=== PATIENT | male | born 1935 | race Asian ===

== ENCOUNTER 2018-08-31 15:46 | Emergency (ER) | payer OTHER, BC ==
--- NOTE | 2018-08-31 16:46 | EDPHY ---
H & P Stated Complaint: fall Time Seen by Provider: 08/31/18 16:26 HPI/ROS: Chief Complaint: Mechanical fall, facial injury, headache HPI: The patient presents to the ED after mechanical fall with complaints of headache and facial pain the patient was walking and slipped on the ice. He fell forward. He landed primarily on his left cheek. He has fairly extensive soft tissue swelling and ecchymosis. The patient denies any visual complaints. He denies significant headache. He denies any acute numbness or weakness. Patient denies any associated neck pain, difficulty breathing or other acute complaints. REVIEW OF SYSTEMS: Comprehensive 10 point review systems otherwise negative aside from elements mentioned in the HPI Source: Patient Exam Limitations: No limitations - Personal History Current Tetanus/Diphtheria Vaccine: Yes Current Tetanus Diphtheria and Acellular Pertussis (TDAP): Yes - Medical/Surgical History Hx Asthma: No Hx Chronic Respiratory Disease: No Hx Diabetes: No Hx Cardiac Disease: No Hx Renal Disease: No Hx Cirrhosis: No Hx Alcoholism: No Hx HIV/AIDS: No Hx Splenectomy or Spleen Trauma: No Other PMH: gout, HTN, glaucoma, - Social History Smoking Status: Former smoker - Physical Exam Exam: General Appearance: Alert, no distress Head: Tenderness, swelling and ecchymosis noted over the left zygomatic arch Eyes: Pupils equal, round, reactive ENT, Mouth: No hemotympanum, no oral trauma Neck: Nontender, trachea midline Respiratory: No chest wall tender, no subcutaneous air, lungs clear bilaterally Cardiovascular: Regular rate and rhythm Abdomen: Abdomen is soft and nontender, pelvis stable Skin: No lacerations, No abrasion Back: No midline T/L/S pain Extremities: Nontender, full range of motion Neurological: A&Ox3, normal motor function, normal sensory exam Constitutional: Initial Vital Signs Temperature (C) 36.4 C 08/31/18 15:55 Heart Rate 101 H 08/31/18 15:55 Respiratory Rate 16 08/31/18 15:55 Blood Pressure 127/92 H 08/31/18 15:55 O2 Sat (%) 90 L 08/31/18 15:55 O2 Delivery Mode Room Air Allergies/Adverse Reactions: No Known Allergies Allergy (Unverified 08/31/18 15:53) Home Medications: Medication Instructions Recorded Allopurinol 08/31/18 Aspirin 12/27/18 Colcrys 08/31/18 Gemfibrozil 08/31/18 Lisinopril 08/31/18 Restasis Multidose 08/31/18 Medical Decision Making - Diagnostics Imaging Results: CT head without contrast: No evidence of intracranial hemorrhage. Nondisplaced sinus fracture noted. Images reviewed by myself and discussed with radiologist Dr. Mack. ED Course/Re-evaluation: Given the patient's age, mechanism of injury and complaints of headache a CT scan of the brain was ordered for [place] head CT rules. CT scan demonstrates no evidence of intracranial hemorrhage or cervical spine fracture. He does have a nondisplaced facial bone fracture which is nonsurgical. Patient will be instructed to take ibuprofen and Tylenol as needed for pain. He should return to the ED for severe headache, blurry vision, the development of new pain or other concerns. Differential Diagnosis: Differential diagnosis considered includes intracranial hemorrhage, facial fracture, ocular entrapment, globe injury Departure - Departure Disposition: Home, Routine, Self-Care Clinical Impression: Facial contusion Condition: Good Instructions: Facial Contusion (ED) Additional Instructions: 1. Please apply ice to your facial swelling 2. You have a nondisplaced facial bone fracture which will heal without surgical intervention. 3. Tylenol and ibuprofen as needed for pain. 4. Return to the ED for markedly worsening pain, new pain, numbness, weakness, visual changes or other concerns. Referrals: Mc Carroll MD [Primary Care Provider] - As per Instructions
[2018-08-31 17:12] VITALS: BP 121/91
== END 2018-08-31 17:12 | disposition home or self-care (01) ==
DX: S00.83XA Contusion of other part of head, initial encounter (principal); W00.0XXA Fall on same level due to ice and snow, initial encounter; Y93.01 Activity, walking, marching and hiking; I10 Essential (primary) hypertension; M10.9 Gout, unspecified; H40.9 Unspecified glaucoma; Z87.891 Personal history of nicotine dependence

== ENCOUNTER 2018-11-20 21:36 | Inpatient (IN) | payer OTHER, BC ==
--- NOTE | 2018-11-20 21:37 | EDPHY ---
H & P Time Seen by Provider: 11/20/18 21:37 HPI/ROS: CHIEF COMPLAINT: Right-sided facial droop and right-sided weakness HISTORY OF PRESENT ILLNESS: Last seen normal per EMS at 6:45 p.m.. Arrives with right-sided weakness and right-sided facial droop. The patient denies headache. His went out to a movie after seeing him normal when she came back she saw that he had fallen and was unable to walk. Patient has moderate to severe right-sided weakness and a little bit of difficulty with speech. Not better or worse with anything. REVIEW OF SYSTEMS: Eye: Difficulty seeing out of the right side. ENT: no sore throat Cardiac: Denies chest pain Pulmonary: no cough or SOB Abdomen: No vomiting Musculoskeletal: no back pain or neck pain Skin: no rash Neuro: no headache, see HPI Constitutional: no fever : no urinary symptoms A comprehensive 10 point review of systems is otherwise negative aside from elements mentioned in the history of present illness. PAST MEDICAL HISTORY: Gout and hypertension, glaucoma Social history: 36.9 temperature General Appearance: Alert and conversant, cooperative. Eyes: No scleral icterus. Pupils equal and reactive but appears to have right- sided visual field deficit. ENT, Mouth: Normal mucous membranes. Respiratory: Normal respiratory effort, breath sounds equal, lungs are clear to auscultation. Cardiovascular: Regular rate and rhythm. Gastrointestinal: Abdomen is soft and non tender. Neurological: Alert, right facial droop, right arm and leg weakness. Right- sided visual field deficit. Speech slightly slurred but appropriately answering questions. Skin: Warm and dry, no rashes. Musculoskeletal: No peripheral edema. Psychiatric: Not agitated. Emergency Department course/MDM: 2139: Dr. Jean from [place] on the monitor. 2145: Left basal ganglia bleed 1.5x 3cm, discussed with [place]; reviewed with the patient's on the computer system. Patient is not a tPA candidate because of hemorrhagic findings on CT scan. 2149: Discussed with Whit; admit hospitalist with Neurosurgery consultation. Platelet count 203,000, INR normal. Systolic blood pressure 138-157 systolic, no action indicated at this time. Smoking Status: Former smoker Constitutional: Initial Vital Signs Heart Rate 98 11/20/18 21:45 Respiratory Rate 20 11/20/18 21:45 Blood Pressure 138/120 H 11/20/18 21:45 O2 Sat (%) 97 11/20/18 21:45 O2 Delivery Mode Room Air Allergies/Adverse Reactions: No Known Allergies Allergy (Unverified 08/31/18 15:53) Home Medications: Medication Instructions Recorded Allopurinol [Allopurinol 100 MG 100 mg PO DAILY 08/31/18 (*)] Aspirin [Aspirin 81mg (*)] 81 mg PO DAILY 08/31/18 Colchicine [Colcrys] 0.6 - 1.2 mg PO DAILY PRN 08/31/18 Gemfibrozil [Lopid 600 MG (*)] 600 mg PO BIDAC 08/31/18 Lisinopril [Zestril 40 mg (*)] 40 mg PO DAILY 08/31/18 Calcium Carbonate [Oyster Shell 500 mg PO DAILY 11/20/18 Calcium 500 mg (*)] Carboxymethylcellulose 0.5% 1 drops EACHEYE PRN PRN 11/20/18 [Refresh Plus Drops 0.5%] Dorzolamide/Timolol [Cosopt (*)] 1 drops EACHEYE BID 11/20/18 Herbals/Supplements -Info Only 1 ea PO DAILY 11/20/18 Latanoprost 0.005% [Xalatan 0.005% 1 drops EACHEYE HS 11/20/18 (*)] Multivitamins [Multivitamin (*)] 1 each PO DAILY 11/20/18 Prevident Mouth Rinse 10 ml MM DAILY 11/20/18 Sodium Chloride 5% [Kimberlee-128 5%] 1 drop EACHEYE HS 11/20/18 Medical Decision Making - Diagnostics EKG Interpretation: 12-lead EKG interpreted by me; official reading is in computer system. My interpretation is sinus rhythm, rate 96, borderline right axis. Nonspecific inferior T-wave flattening. Imaging Results: Imaging Impressions Head CT 11/20/18 21:37 Impression: 1. Acute intraparenchymal hemorrhage left lentiform nucleus 3.2 x 1.6 cm. 2. Mild cerebral atrophy and moderate microvascular ischemic gliosis. 3. Cerebrovascular atherosclerosis. Findings and recommendations discussed with Emergency Department physician, WALKER MEJIA at 2145 hour, 11/20/2018. Final report concurs with initial preliminary interpretation. Imaging: Discussed imaging studies w/ call center coordinator Radiologist Differential Diagnosis: Differential considered including ischemic stroke, seizure, intracranial bleed or hemorrhage, intracranial mass. Consult/Admit Bed Type: [facility] 2202 Critical Care Time: Critical care time spent by me, Dr. Mejia, exclusively with the care of this patient was 30 minutes, exclusive of PA or ORGAN FIXER time and exclusive of separate procedures. The organ system at risk was neurologic and I ordered multiple diagnostics, serial blood pressure monitoring, specialist consultation, hospitalist admission to stabilize the patient and prevent worsening of the patient's condition. - Data Points Laboratory Results: Laboratory Results 11/20/18 21:43 11/20/18 21:43 11/20/18 11/20/18 11/20/18 22:00 21:43 21:43 WBC RBC Hgb POC Hgb Hct POC Hct MCV MCH MCHC RDW Plt Count MPV Neut % (Auto) Lymph % (Auto) [place] % (Auto) Eos % (Auto) Baso % (Auto) Nucleat RBC Rel Count Absolute Neuts (auto) Absolute Lymphs (auto) Absolute Monos (auto) Absolute Eos (auto) Absolute Basos (auto) Absolute Nucleated RBC Immature Gran % Immature Gran # PT 12.8 SEC SEC (12.0-15.0) INR 1.00 (0.83-1.16) POC Sodium Sodium 139 mEq/L mEq/L (135-145) POC Potassium Potassium 4.2 mEq/L mEq/L (3.5-5.2) POC Chloride Chloride 109 mEq/L mEq/L (97-110) Carbon Dioxide 19 mEq/l L mEq/l (22-31) POC Total CO2 Anion Gap 11 mEq/L mEq/L (6-14) POC BUN BUN 26 mg/dL H mg/dL (7-23) Creatinine 1.1 mg/dL mg/dL (0.7-1.3) POC Creatinine Estimated GFR > 60 Glucose 139 mg/dL H mg/dL (70-100) POC Glucose Calcium 9.5 mg/dL mg/dL (8.5-10.4) POC Troponin I 0.01 ng/mL ng/mL (0.00-0.08) 11/20/18 11/20/18 21:43 21:41 WBC 4.70 10^3/uL 10^3/uL (3.80-9.50) RBC 4.12 10^6/uL L 10^6/uL (4.40-6.38) Hgb 13.3 g/dL L g/dL (13.7-17.5) POC Hgb 13.6 gm/dL L gm/dL (13.7-17.5) Hct 39.4 % L % (40.0-51.0) POC Hct 40 % % (40-51) MCV 95.6 fL fL (81.5-99.8) MCH 32.3 pg pg (27.9-34.1) MCHC 33.8 g/dL g/dL (32.4-36.7) RDW 13.1 % % (11.5-15.2) Plt Count 203 10^3/uL 10^3/uL (150-400) MPV 10.6 fL fL (8.7-11.7) Neut % (Auto) 68.7 % % (39.3-74.2) Lymph % (Auto) 18.9 % % (15.0-45.0) [place] % (Auto) 8.9 % % (4.5-13.0) Eos % (Auto) 2.3 % % (0.6-7.6) Baso % (Auto) 0.6 % % (0.3-1.7) Nucleat RBC Rel Count 0.0 % % (0.0-0.2) Absolute Neuts (auto) 3.22 10^3/uL 10^3/uL (1.70-6.50) Absolute Lymphs (auto) 0.89 10^3/uL L 10^3/uL (1.00-3.00) Absolute Monos (auto) 0.42 10^3/uL 10^3/uL (0.30-0.80) Absolute Eos (auto) 0.11 10^3/uL 10^3/uL (0.03-0.40) Absolute Basos (auto) 0.03 10^3/uL 10^3/uL (0.02-0.10) Absolute Nucleated RBC 0.00 10^3/uL 10^3/uL (0-0.01) Immature Gran % 0.6 % % (0.0-1.1) Immature Gran # 0.03 10^3/uL 10^3/uL (0.00-0.10) PT INR POC Sodium 142 mEq/L mEq/L (135-145) Sodium POC Potassium 4.1 mEq/L mEq/L (3.3-5.0) Potassium POC Chloride 109 mEq/L mEq/L (97-110) Chloride Carbon Dioxide POC Total CO2 19 mEq/L L mEq/L (22-31) Anion Gap POC BUN 26 mg/dL H mg/dL (7-23) BUN Creatinine POC Creatinine 1.0 mg/dL mg/dL (0.7-1.3) Estimated GFR Glucose POC Glucose 140 mg/dL H mg/dL (70-100) Calcium POC Troponin I Point of Care Test Results: Chemistry 11/20/18 11/20/18 22:00 21:41 POC Sodium 142 mEq/L mEq/L (135-145) POC Potassium 4.1 mEq/L mEq/L (3.3-5.0) POC Chloride 109 mEq/L mEq/L (97-110) POC Total CO2 19 mEq/L L mEq/L (22-31) POC BUN 26 mg/dL H mg/dL (7-23) POC Creatinine 1.0 mg/dL mg/dL (0.7-1.3) POC Glucose 140 mg/dL H mg/dL (70-100) POC Troponin I 0.01 ng/mL ng/mL (0.00-0.08) ISTAT H&H 11/20/18 21:41 POC Hgb 13.6 gm/dL L gm/dL (13.7-17.5) POC Hct 40 % % (40-51) Departure - Departure Disposition: [facility] Inpatient Acute Clinical Impression: Intracranial hemorrhage Condition: Serious
[2018-11-20 21:47] LABS: PLATELET COUNT 203 10^3/uL (150-400)
[2018-11-20 21:58] LABS: PROTIME(PATIENT) 12.8 SEC (12.0-15.0)
--- NOTE | 2018-11-20 22:13 | CPEKG ---
Test Reason : OPEN Blood Pressure : / mmHG Vent. Rate : 096 BPM Atrial Rate : 096 BPM P-R Int : 199 ms QRS Dur : 072 ms QT Int : 364 ms P-R-T Axes : 052 085 -03 degrees QTc Int : 460 ms Sinus rhythm Borderline right axis deviation Borderline T abnormalities, inferior leads Confirmed by Miles Armstrong ([id number]) on 11/20/2018 10:13:12 PM Referred By: Miles Armstrong Confirmed By:Miles Armstrong
[2018-11-20] MEDS ORDERED: LABETALOL HCL 5 MG/ML 20 ML MDV IVP PRN (22:15)
[2018-11-20] MEDS ORDERED: NS 1,000 ML IV SCH (22:15)
--- NOTE | 2018-11-20 22:45 | PDGENHP ---
History and Physical - Chief Complaint Right-sided weakness - History of Present Illness Source-patient provides history appears reliable. at bedside supplements details. EMR was reviewed and case discussed with ED provider. HPI- pleasant 82-year-old gentleman with past medical history significant for HTN, glaucoma, gout, HLD who presents emergency department via EMS after returned home from a movie finding the patient lying on the ground. The patient estimate the patient may have been on the ground as long as 30 min before she arrived. He reports he was walking out of the bathroom when he suddenly noticed he was leaning back and to the right. Subsequently fell onto his right side. He denies any loss of consciousness. He notes he developed sudden right-sided weakness and was unable to sit or stand self up. Patient reports that 1 point he had some blurry vision on the right and he felt that the right side of his body was missing. Patient was otherwise feeling well. Denies any chest pain, palpitations, shortness of breath, headache, fevers or chills. Patient reports he is feeling well and he walks 20+ minutes per day and also utilizes a apartment gym. Patient states he was here in the ER at the end of 08/24/2018 following a fall with head injury. Patient reports that at that time he felt like his left side was feeling weaker. Evaluation was negative at that time patient was discharged from the ED. History Information - Allergies/Home Medication List Allergies/Adverse Reactions: No Known Allergies Allergy (Unverified 08/31/18 15:53) Home Medications: Allopurinol [Allopurinol 100 MG (*)] 100 mg PO DAILY 08/31/18 [Last Taken Unknown] Aspirin [Aspirin 81mg (*)] 81 mg PO DAILY 08/31/18 [Last Taken Unknown] Colchicine [Colcrys] 0.6 - 1.2 mg PO DAILY PRN 08/31/18 [Last Taken Unknown] Gemfibrozil [Lopid 600 MG (*)] 600 mg PO BIDAC 08/31/18 [Last Taken Unknown] Lisinopril [Zestril 40 mg (*)] 40 mg PO DAILY 08/31/18 [Last Taken Unknown] Calcium Carbonate [Oyster Shell Calcium 500 mg (*)] 500 mg PO DAILY 11/20/18 [ Last Taken Unknown] Carboxymethylcellulose 0.5% [Refresh Plus Drops 0.5%] 1 drops EACHEYE PRN PRN [Last Taken Unknown] Dorzolamide/Timolol [Cosopt (*)] 1 drops EACHEYE BID 11/20/18 [Last Taken Unknown] Herbals/Supplements -Info Only 1 ea PO DAILY 11/20/18 [Last Taken Unknown] Latanoprost 0.005% [Xalatan 0.005% (*)] 1 drops EACHEYE HS 11/20/18 [Last Taken Unknown] Multivitamins [Multivitamin (*)] 1 each PO DAILY 11/20/18 [Last Taken Unknown] Prevident Mouth Rinse 10 ml MM DAILY 11/20/18 [Last Taken Unknown] Sodium Chloride 5% [Kimberlee-128 5%] 1 drop EACHEYE HS 11/20/18 [Last Taken Unknown] I have personally reviewed and updated: family history, medical history, social history, surgical history - Past Medical History Additional medical history: HTN, HLD, glaucoma, gout, 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 - Surgical History Additional surgical history: Bilateral cataract extraction with lens placement. - Family History Additional family history: Father-history of stroke advanced age. Sister- diabetes type 2 - Social History Smoking Status: Former smoker Tobacco Use: Cigarettes Alcohol Use: None Drug Use: None Additional social history: Patient is lives with his . Cor status- full. Review of Systems Review of Systems: ROS: 10pt was reviewed & negative except for what was stated in HPI & below Neurological: Reports: weakness (See HPI) Physical Exam Physical Exam: Selected Entries 11/20/18 21:45 Blood Pressure Automatic Method Heart Rate 98 Respiratory 20 Rate O2 Sat (%) 97 Blood Pressure 138/120 H Mean Arterial 126 H Pressure (MAP) O2 Delivery Room Air Mode Cardiac Rhythm Normal Sinus Rhythm Review of Yes Continuous Monitoring Alarm History Alarm Yes Parameters Assessed Temp Pulse Resp BP Pulse Ox 36.9 C 99 18 153/96 H 96 11/20/18 21:49 11/20/18 22:10 11/20/18 22:10 11/20/18 22:10 11/20/18 22:10 Constitutional: no apparent distress, not in pain, other (NAD. Pleasant adult gentleman appears younger than stated age. is at bedside. Notable right- sided facial drooping) Eyes: PERRL, anicteric sclera, EOMI (Slowing right eye with lateral gaze), scleral injection Ears, Nose, Mouth, Throat: moist mucous membranes, No poor dentition Cardiovascular: regular rate and rhythym, no murmur, rub, or gallop, pulses symmetric bilaterally, tachycardia (90s), No edema Peripheral Pulses: 1+: dorsalis-pedis (R), dorsalis-pedis (L) Respiratory: no respiratory distress, no rales or rhonchi, clear to auscultation Gastrointestinal: normoactive bowel sounds, soft, non-tender abdomen, no palpable masses, No distension Genitourinary: no bladder tenderness, No turk in urethra Skin: warm, normal color, abrasion (Patient with multiple abrasions and bilateral arm skin tears. Right shoulder with abrasions.) Musculoskeletal: generalized weakness (Focal weakness on the right see below) Neurologic: AAOx3, sensation intact bilaterally, weakness (Right upper and lower extremity weakness), facial droop, other (Preliminary NIH 14), No numbness , No CN II-XII Intact (See ocular exam, right facial weakness and drooping.) Psychiatric: interacting appropriately, not anxious, not encephalopathic, thought process linear, No agitated, No poor insight, No poor judgement, No poor memory Lab Data & Imaging Review 11/20/18 21:43 11/20/18 21:43 WBC 4.70 10^3/uL (3.80-9.50) 11/20/18 21:43 RBC 4.12 10^6/uL (4.40-6.38) L 11/20/18 21:43 Hgb 13.3 g/dL (13.7-17.5) L 11/20/18 21:43 POC Hgb 13.6 gm/dL (13.7-17.5) L 11/20/18 21:41 Hct 39.4 % (40.0-51.0) L 11/20/18 21:43 POC Hct 40 % (40-51) 11/20/18 21:41 MCV 95.6 fL (81.5-99.8) 11/20/18 21:43 MCH 32.3 pg (27.9-34.1) 11/20/18 21:43 MCHC 33.8 g/dL (32.4-36.7) 11/20/18 21:43 RDW 13.1 % (11.5-15.2) 11/20/18 21:43 Plt Count 203 10^3/uL (150-400) 11/20/18 21:43 MPV 10.6 fL (8.7-11.7) 11/20/18 21:43 Neut % (Auto) 68.7 % (39.3-74.2) 11/20/18 21:43 Lymph % (Auto) 18.9 % (15.0-45.0) 11/20/18 21:43 [place] % (Auto) 8.9 % (4.5-13.0) 11/20/18 21:43 Eos % (Auto) 2.3 % (0.6-7.6) 11/20/18 21:43 Baso % (Auto) 0.6 % (0.3-1.7) 11/20/18 21:43 Nucleat RBC Rel Count 0.0 % (0.0-0.2) 11/20/18 21:43 Absolute Neuts (auto) 3.22 10^3/uL (1.70-6.50) 11/20/18 21:43 Absolute Lymphs (auto) 0.89 10^3/uL (1.00-3.00) L 11/20/18 21:43 Absolute Monos (auto) 0.42 10^3/uL (0.30-0.80) 11/20/18 21:43 Absolute Eos (auto) 0.11 10^3/uL (0.03-0.40) 11/20/18 21:43 Absolute Basos (auto) 0.03 10^3/uL (0.02-0.10) 11/20/18 21:43 Absolute Nucleated RBC 0.00 10^3/uL (0-0.01) 11/20/18 21:43 Immature Gran % 0.6 % (0.0-1.1) 11/20/18 21:43 Immature Gran # 0.03 10^3/uL (0.00-0.10) 11/20/18 21:43 PT 12.8 SEC (12.0-15.0) 11/20/18 21:43 INR 1.00 (0.83-1.16) 11/20/18 21:43 POC Sodium 142 mEq/L (135-145) 11/20/18 21:41 Sodium 139 mEq/L (135-145) 11/20/18 21:43 POC Potassium 4.1 mEq/L (3.3-5.0) 11/20/18 21:41 Potassium 4.2 mEq/L (3.5-5.2) 11/20/18 21:43 POC Chloride 109 mEq/L (97-110) 11/20/18 21:41 Chloride 109 mEq/L (97-110) 11/20/18 21:43 Carbon Dioxide 19 mEq/l (22-31) L 11/20/18 21:43 POC Total CO2 19 mEq/L (22-31) L 11/20/18 21:41 Anion Gap 11 mEq/L (6-14) 11/20/18 21:43 POC BUN 26 mg/dL (7-23) H 11/20/18 21:41 BUN 26 mg/dL (7-23) H 11/20/18 21:43 Creatinine 1.1 mg/dL (0.7-1.3) 11/20/18 21:43 POC Creatinine 1.0 mg/dL (0.7-1.3) 11/20/18 21:41 Estimated GFR > 60 11/20/18 21:43 Glucose 139 mg/dL (70-100) H 11/20/18 21:43 POC Glucose 140 mg/dL (70-100) H 11/20/18 21:41 Calcium 9.5 mg/dL (8.5-10.4) 11/20/18 21:43 POC Troponin I 0.01 ng/mL (0.00-0.08) 11/20/18 22:00 Imaging Review: CT Brain (Without Contrast) at 2141 hours History: R side weak/face droop. Hypertension. Comparison: CT brain August 2018. Technique: Axial computed tomographic images of the brain without contrast. Dose reduction techniques were utilized. Findings: Acute intraparenchymal hemorrhage in the left lentiform nucleus posterior aspect measuring 3.2 x 1.6 cm, without significant mass effect. Mild diffuse cerebral atrophy. Moderate microvascular ischemic gliosis throughout the white matter. No hydrocephalus or midline shift. Bilateral globus pallidi benign calcifications. Mild peripheral mucosal thickening left maxillary sinus. Cerebrovascular atherosclerotic stenosis bilateral cavernous internal carotid arteries and distal vertebral basilar system. Impression: 1. Acute intraparenchymal hemorrhage left lentiform nucleus 3.2 x 1.6 cm. 2. Mild cerebral atrophy and moderate microvascular ischemic gliosis. 3. Cerebrovascular atherosclerosis. EKG additional interpertation: NSR 90s. RAD. T-wave inversion in lead 3 Assessment & Plan Assessment: Pleasant 82-year-old gentleman with past medical history significant for HTN, glaucoma, gout, HLD who presents emergency department via EMS after returned home from a movie finding the patient lying on the ground. Hemorrhagic CVA - patient presented with elevated BPs 196/90 and variable diastolic as high as 120mmHg. Patient right sided deficits slightly improved since arrival to ED. Hemorrhagic stroke protocol in place. Neurosurgery consultation from ED will see in AM. PT/OT/[facility]. rehab eval. CT Head in AM. echo in AM. lipid panel, a1c as below. Right-sided weakness - patient with some improvement in symptoms since arrival. plan as noted above. Accelerated hypertension - BP management with hydralazine. labetalol on national back order but currently BPs autoregulated and has not required any antihypertensive. Goal SBP < 140. hyperglycemia - check a1c. last in EMR 10/2017 6.3% HLD - check lipid panel. patient on gemfibrozil reports he was remotely on a statin. chronic anemia - at baseline. follow up with PCP. gout - resume colchicine, and allopurinol. glaucoma - continue home gtts. FEN - gentle IVF hydration while patient NPO until evaluated by [facility] 2/2 facial drooping. electrolytes adequate do not require replacement. PPX - SCDs. anticoagulation contraindicated in setting of intracranial hemorrhage. COR - FULL Dispo - Patient admitted to ICU for close neurologic monitoring overnight. anticipate > 2 midnight stay. NS consulted from ED.
[2018-11-20] MEDS ORDERED: hydrALAZINE 20 MG/ML VIAL IVP PRN (22:55)
[2018-11-20] MEDS ORDERED: ACETAMINOPHEN 650 MG SUPP PR PRN (23:29)
[2018-11-20] MEDS ORDERED: ACETAMINOPHEN 325 MG TAB PO PRN (23:29)
[2018-11-20] MEDS ORDERED: ONDANSETRON 4 MG/2 ML VIAL IVP PRN (23:29)
[2018-11-20] MEDS ORDERED: ONDANSETRON DISINTEGRATING 4 MG TAB PO PRN (23:29)
[2018-11-21 05:22] LABS: PLATELET COUNT 188 10^3/uL (150-400)
[2018-11-21] MEDS ORDERED: CARBOXYMETHYLCELLULOSE 0.5% 0.4 ML DROPERETTE EACHEYE PRN ×2 (06:58→10:00)
[2018-11-21] MEDS ORDERED: COLCHICINE 0.6 MG CAP/TAB PO PRN (07:30)
--- NOTE | 2018-11-21 08:07 | GCON ---
[f rep st] CONSULTATION CONSULTATION/HISTORY AND PHYSICAL DATE OF CONSULTATION: 11/21/2018 Patient seen by neurosurgical service, both me and Dr. Sherman, at 0630 on 2018 in bed 244 in the ICU. CHIEF COMPLAINT: Right-sided weakness with a recent fall. HISTORY OF PRESENT ILLNESS: The patient is an 82-year-old gentleman with a past medical history significant for hypertension, glaucoma, gout, and high cholesterol. He presented to the emergency department via EMS after his returned home from a movie finding him lying on the ground. Patient states that he was in a bathroom, was attempting to get up to pull his pants up. He fell into the toilet and landed in the bathtub. He was able to crawl out but subsequently had another fall. He landed on his right side. There was no loss of consciousness. He was found on the ground and was lying there for approximately 30 minutes prior to when his returned home from the movie. He reports that he was walking out of the bathroom when he suddenly noticed that he was leaning to the right, had some balance issues. He did have these 2 falls. Currently, he denies any pain. He does have some abrasion to his right shoulder but denies any shoulder pain at this time. He noted that he had some right-sided weakness. He was unable to sit or stand on his own. He did also complain of some blurry vision on the right. Otherwise, he has been feeling well. Currently denies any headache. No neck pain. No thoracic or lumbar spine pain. Patient denies any chest pain or shortness of breath. No fevers or chills. No nausea or vomiting. No abdominal complaints. No complaints such as incontinence, dysuria. Yesterday, he was of his normal state of health. He walks approximately 20 minutes per day, and he does use a gym in the apartment complex that he lives in. Patient did have a fall on August, felt his left side was weaker at the time. He had an evaluation at that time, was negative, and discharged from the emergency department. Currently, the patient feels fine. ALLERGIES: No known drug allergies. HOME MEDICATIONS: Allopurinol, daily baby aspirin, last taken per patient yesterday, colchicine, gemfibrozil, lisinopril, calcium carbonate, Refresh eyedrops, Cosopt, herbal supplements, Xalatan, multivitamins, Prevident mouth rinse and sodium chloride 5% to each eye. PAST MEDICAL HISTORY: Significant for the following. 1. Hypertension. 2. Hyperlipidemia. 3. Glaucoma. 4. Gout. 5. 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 PAST SURGICAL HISTORY: Bilateral cataract surgery and lens replacement. FAMILY HISTORY: Father does have a history of stroke related to advanced age. He has a sister with type 2 diabetes. SOCIAL HISTORY: Patient is . He is 82 years of age. He lives in [place] on [address]. He is a former smoker. Does not use any alcohol. Does not use any illicit drugs. He is full CoR status. IMMUNIZATIONS: Reported up to date. TRAVEL: No recent travel. REVIEW OF SYSTEMS: A complete 10-point review of systems was negative, otherwise, noted in HPI. PHYSICAL EXAM: GENERAL: This is awake, alert, oriented male in no acute distress. MOST RECENT VITAL SIGNS: Blood pressure 133/79 with a MAP of 97, 80 heart rate, 12 respirations and 90% on room air, and most recent temperature 36.8. HEENT: Head is normocephalic, atraumatic. Pupils are equal, round, reactive to light. EOMI is intact. Full visual little by confrontation. Ears are patent. Nose is patent. NECK: Soft and supple. No midline tenderness. Full range of motion in flexion, extension, lateral bending, and rotation. RESPIRATORY/CARDIAC: Deferred. ABDOMEN: Soft, nontender. No peritoneal signs. AND RECTAL: Deferred. NEURO: Patient is awake, alert, oriented to name, place, location, date, time, and situation. Memory is intact to immediate , past, current events. Speech: No aphasia, dysarthria, dysphonia. Cranial nerves 2-12 grossly intact. Motor: Patient has 5/5 strength in all muscle groups of the bilateral upper and lower extremities to include deltoids, biceps , triceps, brachioradialis, wrist flexion, extensors, machine scallop cutter, intrinsic fingers, iliopsoas, quadriceps, hamstring, plantar flexion, dorsiflexion, EHL testing with the exception of right upper extremity and right lower extremity globally have 4+/5 to 5- out of 5. No other weakness noted. Sensation is grossly intact to light touch throughout all dermatome distributions, upper and lower extremities. Negative straight leg raise. Negative JAMEL test. Reflexes of biceps, triceps, brachioradialis, knee jerk, and ankle jerk 2+/4. Toes are downgoing bilaterally. Vega's negative. Babinski's negative. No evidence of clonus. MEDICAL DECISION MAKING/DIAGNOSTIC STUDIES: 11/21/2018 shows a white count of 7.83 with an H and H of 12.5 and 37.2 with a platelet count of 188. Coags on show a PT of 12.8, INR of 1.00. Chemistries on 11/21/2018: Sodium 138 , potassium 3.6, chloride 113, CO2 is 18, creatinine 0.8, and a glucose of 114. MEDICAL DECISION MAKING/ DIAGNOSTIC STUDIES/IMAGING: A CT scan of the head obtained 11/20/2018 and also 11/21/2018 shows an acute intraparenchymal hemorrhage in the left lentiform nucleus that measures 3.2 x 1.6 cm. There is noted cerebral atrophy and cerebral vascular atherosclerosis. Repeat CT scan this morning shows a similar size with more fullness of the bleed itself and is more well defined. These images were reviewed with Dr. Sherman as well. No further CT scans recommended. IMPRESSION: 1. Fall x2 on 11/20/2018. History of fall on 08/24/2018. 2. Acute intraparenchymal hemorrhage, left lentiform nucleus, 3.2 x 1.6 cm. 3. History of hypertension, hyperlipidemia, glaucoma, and gout. PLAN/DISCUSSION: The patient is an 82-year-old male who was admitted to the internal medicine service. He does have significant history of hypertension, glaucoma, gout, and hyperlipidemia. He presented after was found down by his . Reportedly, he was lying down for approximately 30 minutes. When he walked to the bathroom, he did have some balance issues. He subsequently had 2 falls in the bathroom. When he came into the emergency department, a CT scan of the head was obtained and was reviewed as noted above. On his admission note , it did say that he was on aspirin 81 mg last taken on 08/31. The patient stated that he took aspirin yesterday. We will try to figure out the exact date of his last aspirin intake. The patient was seen and evaluated both by me and Dr. Rajpal this a.m. We recommend to keep his systolic blood pressures less than 160 and make sure that he is on Keppra for 7 days. Neurology was consulted as well. Internal Medicine admitted the patient. Currently, the patient is neurologically intact with the exception of some diffuse very mild weakness in his right upper and right lower extremities. Spoke with the patient that no surgery is recommended for this. Will continue to follow him until Neurology can see him, as well as Internal Medicine, later today. Again, no further CT scan is recommended at this time. Recommended continuing neuro checks as well. Patient understands and agrees. All questions, concerns were answered. /[id number]/MODL MTDD
[2018-11-21] MEDS: LISINOPRIL 40 MG TAB PO SCH (09:41)
[2018-11-21] MEDS: levETIRAcetam 500 MG TAB PO SCH ×2 (09:42→21:40)
[2018-11-21] MEDS: ALLOPURINOL 100 MG TAB PO SCH (09:43)
[2018-11-21] MEDS: GEMFIBROZIL 600 MG TAB PO SCH ×2 (09:44→17:15)
[2018-11-21] MEDS: SODIUM FLUORIDE MM SCH (09:50)
[2018-11-21] MEDS: DORZOLAMIDE/TIMOLOL 10 ML OPHT.BTL EACHEYE SCH ×2 (09:59→21:41)
--- NOTE | 2018-11-21 11:28 | PDMN ---
Medical Necessity Medical necessity: Pt meets IP criteria per & CARLIE M-85; est los >2 mn for eval/tx of hemorrhagic stroke; admit to ICU for close monitoring & stroke protocol; comorbid advanced age; per H&P & order 11/20/18
--- NOTE | 2018-11-21 12:14 | ECHO ---
[email or web address] [address] Main: [phone] Echocardiography Examination Transthoracic Name: ANGELA LARA MR#: [id number] Study Date: 11/21/2018 Study Time: 09:12 AM Date of : 1935 Age: 82 year(s) Height: 167.6 cm (66 in.) Weight: 68.04 kg (150 lb.) BSA: 1.77 m2 Gender: Male Examination: Echo with Agitated Saline Contrast: Image Quality: Adequate Rhythm: Heart Rate: BP: 152 mmHg/93 mmHg Indication: Hemorrhagic Stroke Procedure Staff Referring Physician: Linesperson: Jessica Oakes [facility] Reading Physician: Paolo Anton MD Requesting Provider: Indication: Hemorrhagic Stroke Measurements Chambers AV/MV Label Value Normal Value Label Value Normal Value EF lower range (%) 55 % AV PGmean 5 mmHg EF upper range (%) 60 % LUCRECIA D (continuity eq. 2 cm2 IVSd, 2D 1.2 cm (0.6cm - 1.1cm) VTI) LVDd, 2D 3.6 cm (4.2cm - 5.9cm) MV A Vmax 0.79 m/s LVDs, 2D 2.5 cm (2.1cm - 4cm) MV DT 183 ms LVEF visual 60 % MV E' lateral 0.08 m/s LVEF, 2D 61 % (54% - 74%) MV E' mean 0.06 m/s LVEF, MOD2 79 % (55% - 70%) MV E' septal 0.05 m/s LVEF, MOD4 68 % (55% - 70%) MV E Vmax 0.66 m/s LVOT PGmean 2 mmHg MV E/A 0.84 LVOT Vmean 0.64 m/s MV E/E' lateral 8.4 LVOTd 1.9 cm (1.9cm - 2.1cm) MV E/E' mean 10.15 LVPWd, 2D 1 cm (0.6cm - 1cm) MV E/E' septal 12.6 (0.45 - 1.25) RVDd, 2D 2.7 cm (1.9cm - 3.8cm) MV PHT 0.06 s LA Area, A2C 10.7 cm2 (0cm2 - 20cm2) MV PHT 56 ms LA Volume, A2C 22 ml (18ml - 58ml) MVA PHT 3.9 cm2 LA Volume, A4C 24 ml (16ml - 34ml) TV/PV LA Volume, BP 23 ml (18ml - 58ml) Label Value Normal Value LAD Index, 2D 1.58 cm/m2 RA Pressure 5 mmHg LADs, 2D 2.8 cm (3cm - 4cm) RVSP 46 mmHg Patient: ANGELA LARA Study Date: 11/21/2018 Page 1 of 3 09:12 AM LAESV index, MOD4 13.6 ml/m2 TR Pmax 41 mmHg RA Area 10.2 cm2 TR Vmax 3.19 m/s Additional Vessels PV PGmax 3 mmHg Label Value Normal Value PV Vmax, Caliper 0.88 m/s (0.6m/s - 0.9m/s) AoAsc 2.8 cm AoRoot, 2D 3.1 cm (1.4cm - 2.6cm) IVC 1.3 cm (1.2cm - 2.3cm) Conclusions Left Ventricle: Normal global systolic left ventricular function. The EF is visually estimated to be 60 %. IAS: An agitated saline study was performed and was negative for intracardiac shunting. Mitral Valve: Trivial to mild mitral regurgitation. Aortic Valve: Mild aortic regurgitation is present. Tricuspid Valve: Mild tricuspid regurgitation. Right Ventricular systolic pressure is measured at 46 mmHg. Findings Some imaging off axis, limited windows. Left Ventricle: Left ventricle is normal in size. Normal global systolic left ventricular function. The EF is visually estimated to be 60 %. EF range is estimated at 55 % - 60 %. There are no regional wall motion abnormalities. Left ventricular diastolic function parameters are normal. There is mild concentric left ventricular hypertrophy. Left Atrium: The left atrium is normal in size. IAS: An agitated saline study was performed and was negative for intracardiac shunting. Mitral Valve: Mitral valve appears structurally normal. Trivial to mild mitral regurgitation. No mitral valve stenosis. Aortic Valve: Aortic leaflets are structurally normal. Mild aortic regurgitation is present. There is no aortic stenosis. Aortic leaflets exhibit calcification. Tricuspid Valve: Tricuspid valve leaflets are structurally normal. Mild tricuspid regurgitation. Right Ventricular systolic pressure is measured at 46 mmHg. Pulmonary artery pressure is mildly to moderately increased. Pulmonic Valve: Pulmonic leaflets are structurally normal. Mild pulmonic valve regurgitation is present. Aorta: The aortic root size in 2D measures 3.1 cm. The ascending aorta measures 2.8 cm. Aorta Measurements AoRoot, 2D is 3.1 cm. IVC: The inferior vena cava is normal in size. Patient: ANGELA LARA Study Date: 11/21/2018 Page 2 of 3 09:12 AM Exam Details Procedure Ordered: Echo with Agitated Saline Procedure Status: Routine study Image Quality: Adequate Facility Location: Cardiac Echo 1 (No Signature Object) Patient: ANGELA LARA Study Date: 11/21/2018 Page 3 of 3 09:12 AM [id number]
--- NOTE | 2018-11-21 12:42 | PDCONSULT ---
Jackhammer Splitter Operator Note: ASSESSMENT 82-year-old female with a history of hypertension and hyperlipidemia with acute intraparenchymal hemorrhage. # acute intraparenchymal hemorrhage. Left lentiform nucleus, 3.2 x 1.6 cm. Stable on serial imaging # falls, recurrent # hypertension # gout # hyperlipidemia # encephalopathy. mild. due to ICH. improved today PLAN # aggressive blood pressure control goal systolic less than 140. # restart oral outpatient antihypertensives # Keppra x7 days then stop # hold aspirin # appreciate Neurosurgery and Neurology input # okay to continue other outpatient medications # rehab consult # Feeding - advance diet as tolerated # Analgesia APAP # Sedation low-dose trazodone at bedtime p.r.n. # Thromboprophylaxis - SCDs # Head of bed elevated # Ulcer prophylaxis - NA # Glucose SSI # Skin no skin breakdown # Delirium - delirium precautions # if clinically stable today will downgrade to medsurg with tele tomorrow assuming BP is adequately controlled Data 11/21/2018 TTE LVEF systolic function normal. EF approximately 60%, no intracardiac shunt ABX none IMAGING 11/21/2018 CT head without contrast stable low left basal ganglia intraparenchymal hemorrhage -30 x 17 mm with small amount of surrounding edema. Calcifications in globus pallidus re-demonstrated. Distal calcifications present. Nonspecific hypodensities in white matter of bilateral cerebral hemispheres suspect microvascular disease chronic from hypertension CONSULT I was asked by Dr. Prasad of Hospital Medicine to evaluate this patient for ICU care insetting of acute IPH and encephalopathy CC fall HPI Nico is a very pleasant 82-year-old male with a history of hypertension, hyperlipidemia who is brought in by a EMS after found patient on ground. He may have been down for at least 30 min prior to arrival. He has been having more falls as of late and was walking of the bathroom when he fell unstable and lost his balance and fell. He does not believe he hit his head. He also notices associated right-sided weakness was able to sit or stand up. He also describes some blurry vision and piero and right-sided hemianopsia. He otherwise felt well. No fevers, chills, chest pain, nausea, vomiting, shortness of breath. And Emergency Department patient went for an urgent CT head scan which demonstrated acute intraparenchymal hemorrhage and was also found to be hypertensive with systolics to 190 ALLERGIES NKDA MED HX Hypertension, falls, hyperlipidemia, gout, glaucoma SOC HX Lives with in [place]. Nonsmoker, nondrinker FAM HX No history of intracranial hemorrhage. Father had stroke Review of systems A comprehensive 10 point review of systems was obtained is negative except as per HPI Exam Afebrile, 132/76, heart rate 88, respiratory 16 98% on room air GEN: NAD, up in chair, interactive NEURO: Mild right-sided facial droop. A&Ox3, CN 2-12 GI HEENT: PERRL, EOMI, MMM, OP clear NECK: supple, trachea midline CHEST normal shape, no pes excavatum CVS: rrr no m/r/g PULM: CTA B, no wheezes/rales/rhonchi ABD: soft, NT, ND, NABS EXT: no swelling, no cyanosis, full ROM SKIN: warm, dry, intact, no rash PSYCH CAM negative, appropriate affect
[2018-11-21] MEDS ORDERED: IOPAMIDOL (ISOVUE 370) 100 ML BTL IV ONE (18:28)
[2018-11-21] MEDS: LATANOPROST 0.005% 2.5 ML OPHT DROPS EACHEYE SCH ×3 (21:40→23:17)
[2018-11-21] MEDS: SODIUM CHLORIDE 5% EACHEYE SCH ×2 (21:41→21:45)
--- NOTE | 2018-11-22 06:34 | NEUSURGPN ---
Assessment/Plan: Assessment: 82 yo male that presented with facial droop and right sided weakness with noted left BG bleed Plan: -stable neuro exam this am. Pt with continued weakness in RUE and RLE -pt had fall from chair last night to his shoulder-no pain. No head injury -PT/OT/ST ordered -neurology consult pending -SBP less than 160 -Keppra x 7 days -will check with IM to see if ok to sign off -call with any questions or concerns -no further CTs needed at this time -d/w Dr Sherman Subjective: Awake and alert. NAD. Eating/drinking and voiding. No f/c/n/v/d. No foley/neck/ chest/abd or gu complaints. Objective: AAO x 3, PERRLA/EOMI continued mild droop otherwise CN 2-12 grossly intact 5/5 LUE/LLE 4+-5-/5 RUE and RLE neuro stable Neuro Check Frequency: per ordered Urinary Catheter in Place: No - Physician Discussed Patient with : Whit Patient Seen by : Whit Neurosurgery Physical Exam - Vitals, I&O, Labs I and O 11/21/18 11/22/18 11/23/18 05:59 05:59 05:59 Intake Total 430 650 Output Total 300 425 Balance 130 225 Weight 69 kg Intake: Oral (ml) 0 400 IV Infused (ml) 430 250 Ns 1,000 ml @ 70 mls/hr 330 250 IV CONT MICHAEL Rx#: [id number] Output: Urine (ml) 300 425 Urinal 300 425 Other: Number of Voids Toilet 3 Number of Stools Toilet 1 Vital Signs Temp Pulse Resp BP Pulse Ox 36.4 C 79 15 133/87 H 95 11/21/18 20:00 11/22/18 03:34 11/22/18 03:34 11/22/18 03:34 11/22/18 03:34 Laboratory Results 11/21/18 05:14 11/21/18 05:14 ICD10 Worksheet Patient Problems: Problems Problem Status Onset Intracranial hemorrhage Acute
--- NOTE | 2018-11-22 08:53 | PDINTPN ---
Painter Set Progress Note Assessment/Plan: ASSESSMENT 82-year-old female with a history of hypertension and hyperlipidemia with acute intraparenchymal hemorrhage. # acute intraparenchymal hemorrhage. Left lentiform nucleus, 3.2 x 1.6 cm. Stable on serial imaging. No e/o AVM or aneurysm on CTA head # falls, recurrent # hypertension # gout # hyperlipidemia # encephalopathy. mild. due to ICH. improved today PLAN # continue blood pressure control # restart oral outpatient antihypertensives # Keppra x7 days then stop # hold aspirin # appreciate Neurosurgery and Neurology input # okay to continue other outpatient medications # rehab consult # Feeding - advance diet as tolerated # Analgesia APAP # Sedation low-dose trazodone at bedtime p.r.n. # Thromboprophylaxis - SCDs # Head of bed elevated # Ulcer prophylaxis - NA # Glucose SSI # Skin no skin breakdown # Delirium - delirium precautions # downgrade to MS with tele today if clinically stable today will downgrade to medsurg with tele tomorrow assuming BP is adequately controlled 11/21/18 CTA head. No intracranial aneurysm, no AVM, stable IP 11/21/18 CTH stable intraparenchymal hemorrhage in L posterior ganglia 3 x 1.7 cm 11/21/18 TTE no CHF, no intracardiac shunt Subjective: No acute events overnight, BP controlled after restarting lisinopril, CTA head without AVM or aneurysm. Stable intraparenchymal hemorrhage. No new fevers, chills, nausea, vomiting, chest pain. Still with mild right upper and lower extremity weakness Objective: Vital Signs Temp Pulse Resp BP Pulse Ox 36.4 C 79 15 133/87 H 95 11/21/18 20:00 11/22/18 03:34 11/22/18 03:34 11/22/18 03:34 11/22/18 03:34 Laboratory Results 11/21/18 05:14 11/21/18 05:14 11/21/18 11/22/18 11/23/18 05:59 05:59 05:59 Intake Total 430 650 Output Total 300 425 Balance 130 225 PT 12.8 SEC (12.0-15.0) 11/20/18 21:43 INR 1.00 (0.83-1.16) 11/20/18 21:43 Physical Exam - Physical Exam General Appearance: alert, no apparent distress EENT: PERRL/EOMI, normal ENT inspection Neck: non-tender, full range of motion Respiratory: chest non-tender, lungs clear, normal breath sounds Cardiac/Chest: normal peripheral pulses, regular rate, rhythm, No edema Abdomen: normal bowel sounds, non-tender Back: Normal inspection Skin: normal color, warm/dry, No cyanosis Extremities: normal range of motion, non-tender Neuro/Psych: alert, normal mood/affect, oriented x 3, abnormal screwhead polisher II-XII, other (4+/5 right upper and right lower extremity strength. Slight facial droop but other cranial nerves 2-12 grossly intact) ICD10 Worksheet Patient Problems: Problems Problem Status Onset Intracranial hemorrhage Acute
--- NOTE | 2018-11-22 09:30 | NEUROPROG ---
Assessment: [id number] - Neurology Consult: - CC: Brain Hemorrhage - HPI: 11/22/18: Pt developed sudden onset right sided weakness on 11/20/18 so came to [facility] ER. Head CT showed left basal ganglia hemorrhage likely from underlying HTN. Pt was on aspirin prior to stroke. Blood pressure elevated on admission. Neurosurgery saw and did not recommend surgery. Repeat head CT showed stable bleed. Aspirin stopped. I initially saw pt on 11/22/18. Neurologic exam showed right sided weakness. Head CTA showed no vessel abnl suspicious for cause of bleed. I suspect bleed was from underlying HTN. Treatment is blood pressure control and stopping aspirin. - PMHx: HTN, glaucoma, gout, HLD - SHx: former tobaccos use. FHx: CVA, DM2 - ROS: Pt denied acute fever, total vision loss, active severe chest pain, respiratory failure, total body severe rash, total bowel/bladder incontinence, psychosis, active seizures, or active bleeding - O: VS reviewed General: Alert Eyes: Fundoscopic exam not able to visualize optic disks CV: Heart RRR, no murmur, no carotid bruit Lungs: Clear to auscultation bilaterally, no rhonchi or rales Neuro: - Mental: . Oriented x person/place/date . concentration appears normal . speech fluency/comprehension normal . memory appears normal . fund of knowledge appear intact - Cranial Nerves: . II: PERRL, VFFTC . III/IV/: EOMI, no nystagmus, normal smooth pursuits, no Ptosis . V: facial sensation intact to LT . VII: slight lower right facial weakness . VIII: hearing intact to conversation . IX/X: uvula raises symmetrically . XI: SCM 5/5 B/L strength . XII: tongue protrudes midline w/nl strength - Motor: . Tone: normal tone in all 4 extremity . Strength: right arm/leg weakness - Reflexes: B/L bic 2/4 - Sensory: all 4 extremity intact to light touch - Coord: NAGI wnl - Gait: deferred - Labs: 11/21/18- Na 138 - Rads: 11/20/18- Head CT wo: left putamen hemorrhage (I personally visualized the images on 11/22/18) 11/21/18- TTE: no cardiac thrombus noted 11/21/18- Head CTA: no vessel abnl noted - Assessment: 1. Left Putamen Hemorrhage likely from HTN on 11/20/18: Based on location and unremarkable head CTA I suspect a hypertensive hemorrhage. Treatment is aimed at good blood pressure control and avoiding meds that increase bleeding risk. - Plan: - defer blood pressure guidelines to neurosurgery (middle or intermediate school principal blood pressure goal is < 140/90) - Stop aspirin if possible to lower bleeding risk, restart if needed when neurosurgery feels it is ok - Agree with PT/OT/Speech to determine rehab needs - No further neurologic w/u needed, neurology will sign off Objective: Vital Signs Temp Pulse Resp BP Pulse Ox 36.4 C 94 20 127/75 H 96 11/22/18 08:00 11/22/18 08:00 11/22/18 08:00 11/22/18 08:00 11/22/18 08:00 Laboratory Results 11/21/18 05:14 11/21/18 05:14 11/21/18 11/22/18 11/23/18 05:59 05:59 05:59 Intake Total 430 650 Output Total 300 425 Balance 130 225 PT 12.8 SEC (12.0-15.0) 11/20/18 21:43 INR 1.00 (0.83-1.16) 11/20/18 21:43 Allergies/Adverse Reactions: No Known Allergies Allergy (Unverified 08/31/18 15:53)
[2018-11-22] MEDS: DORZOLAMIDE/TIMOLOL 10 ML OPHT.BTL EACHEYE SCH ×2 (09:41→20:02)
[2018-11-22] MEDS: levETIRAcetam 500 MG TAB PO SCH ×2 (09:44→20:04)
[2018-11-22] MEDS: GEMFIBROZIL 600 MG TAB PO SCH ×2 (09:44→17:53)
[2018-11-22] MEDS: ALLOPURINOL 100 MG TAB PO SCH (09:47)
[2018-11-22] MEDS: LISINOPRIL 40 MG TAB PO SCH (09:47)
[2018-11-22] MEDS: SODIUM FLUORIDE MM SCH (11:03)
--- NOTE | 2018-11-22 11:52 | ASMTCMCOM ---
CM Note CM Note Notes: Pt is a 82 yo M in for ICH. Pt has been accepted at inpatient rehab, MD and pt/family notified, family agreeable to [facility] inpatient rehab. CM to follow. Plan: inpatient rehab once medically stable, possibly . Date Signed: 11/22/2018 11:52 AM Electronically Signed By:BARB Menendez
--- NOTE | 2018-11-22 12:33 | HOSPPROG ---
Hospitalist Progress Note Assessment/Plan: # IPH - likely hypertensive per neuro; mild R sided weakness - keppra x 7 days - BP goal < 140/90 - stop asa # htn - lisinopril # gout - colchicine prn # metabolic encephalopathy - improved # dispo - accepted to inpatient rehab - likely dc tomorrow Subjective: Feels that his left side is stronger Objective: Vital Signs Temp Pulse Resp BP Pulse Ox 36.4 C 94 20 127/75 H 96 11/22/18 08:00 11/22/18 08:00 11/22/18 08:00 11/22/18 08:00 11/22/18 08:00 Laboratory Results 11/21/18 05:14 11/21/18 05:14 11/21/18 11/22/18 11/23/18 05:59 05:59 05:59 Intake Total 430 650 Output Total 300 425 Balance 130 225 PT 12.8 SEC (12.0-15.0) 11/20/18 21:43 INR 1.00 (0.83-1.16) 11/20/18 21:[address] personally reviewed - Physical Exam Constitutional: no apparent distress, appears nourished Cardiovascular: regular rate and rhythym, no murmur, rub, or gallop Respiratory: no rales or rhonchi, clear to auscultation Gastrointestinal: soft, non-tender abdomen, no palpable masses, No guarding, No rebound Neurologic: AAOx3, No facial droop ICD10 Worksheet Patient Problems: Problems Problem Status Onset Intracranial hemorrhage Acute
[2018-11-22] MEDS: LATANOPROST 0.005% 2.5 ML OPHT DROPS EACHEYE SCH (21:35)
[2018-11-22] MEDS: SODIUM CHLORIDE 5% EACHEYE SCH (21:37)
[2018-11-23] MEDS: levETIRAcetam 500 MG TAB PO SCH (08:30)
[2018-11-23] MEDS: DORZOLAMIDE/TIMOLOL 10 ML OPHT.BTL EACHEYE SCH (08:31)
[2018-11-23] MEDS: ALLOPURINOL 100 MG TAB PO SCH (08:31)
[2018-11-23] MEDS: LISINOPRIL 40 MG TAB PO SCH (08:31)
[2018-11-23] MEDS: GEMFIBROZIL 600 MG TAB PO SCH (08:38)
[2018-11-23 08:46] VITALS: BP 113/69
--- NOTE | 2018-11-23 08:47 | PDIAF ---
- Diagnosis Diagnosis: intracranial hemorrhage Code Status: Full Code - Medication Management Discharge Medications: electronically signed and located in the Home Medication List. PICC Care - Routine: N/A - Orders Services needed: Registered Nurse, Physical Therapy, Occupational Therapy, Speech Language Pathologist Diet Recommendation: cardiac -low fat low salt Diet Texture: Regular Texture Diet, Thin Liquids, Meds Whole w/Liquids Additional Instructions: Follow up with neurosurgery in 2 weeks. - Follow Up Care Current Providers and Referrals: Patient,NotPresent [Unknown] - As per Instructions Amador Sherman MD [Medical Doctor] -
--- NOTE | 2018-11-23 09:58 | GDS ---
[f rep st] DISCHARGE SUMMARY DISCHARGE DIAGNOSES: 1. Acute intracranial hemorrhage with right-sided weakness. 2. Hypertension. 3. Hyperlipidemia. 4. Chronic anemia at baseline. CONSULTANTS: 1. Ed Galloway PA-C, neurosurgery. 2. Dr. Walt Chaudhary, pulmonary critical care. 3. Dr. Raul Villegas, neurology. IMAGING STUDIES: 1. Head CT November 20, 2018, showed acute intraparenchymal hemorrhage in the left lentiform nucleus me asuring 1.6 x 3.2 cm, in addition, mild cerebral atrophy and moderate microvascular ischemic gliosis as well as cerebral vascular atherosclerosis were noted. 2. Echocardiogram November 21, 2018, showed normal left ventricular function with an ejection fraction of 60%, mild aortic regurgitation, mild mitral regurgitation, mild tricuspid regurgitation. Right ve ntricular systolic pressure 46. Mild pulmonic valve regurgitation. No evidence of intracardiac shun ting. 3. Head CT angiogram November 21, 2018, was negative for intracranial aneurysm, vascular malformation, mass, or sagittal sinus thrombosis. Moderate stenosis of the left internal carotid artery in the set ting of calcified plaque is noted. HISTORY OF DETAILS: Please see History and Physical dated November 20, 2018. In brief, this patient is an 82-year-old male with history of hypertension and hyperlipidemia, who presented to the emergency department after his found him on the ground. He reportedly had a fall, but no loss of consciou sness. He developed sudden right-sided weakness and was brought to the emergency department where CT revealed evidence of a left intracranial hemorrhage. HOSPITAL COURSE: Patient was admitted to the intensive care unit nurse. Neurosurgery consulted. Th ere was no indication for surgical intervention. Neurology also consulted. His aspirin was held. Thony smith was continued on lisinopril for blood pressure control. His goal blood pressure is less than 140/9 0. He has mostly been normotensive in the past 24 hours, thus no further antihypertensives are added to his regimen at this time. However, should his blood pressures be persistently greater than 140/9 0, would consider addition of low-dose Norvasc. He was evaluated by our therapy team. It was recomm ended he would benefit from inpatient rehab given his right-sided weakness in the setting of acute he morrhagic stroke. The patient is agreeable to this plan. On the day of discharge, he is hemodynamic ally stable. He denies headache or worsening neurologic symptoms. DISPOSITION: Patient is discharged to inpatient rehab in stable condition. FOLLOWUP: He should follow up with Neurosurgery in 1-2 weeks. DISCHARGE MEDICATIONS: Please see [facility] for completed medication list. New medications on discha rge include Tylenol 650 p.o. q.4 hours p.r.n., Keppra 750 mg p.o. twice daily for 5 more days to comp lete a one-week course. He will continue all other outpatient medications as previously prescribed. Aspirin is held at this time and can be resumed once deemed safe by Neurosurgery, and he will follow up with them as above. /[id number]/MODL
--- NOTE | 2018-11-23 09:59 | ASMTLACE ---
LACE Length of stay for Answers: 3 days current admission Acuity / Level of Answers: Yes Care: Did the patient have an inpatient admission? Comorbidities - select Answers: Other Notes: HTN; HLD all that apply # of Emergency department Answers: 1-2 visits in the last 6 months Score: 8 Date Signed: 11/23/2018 09:58 AM Electronically Signed By:Charla Hearn RN
--- NOTE | 2018-11-23 10:00 | ASMTDCNOTE ---
Case Management Discharge Discharge Order Complete? Answers: Yes Patient to Obtain Answers: Independently Medications Transportation Arranged Answers: Other Notes: Passages w/c van Transport will Pick (Date 11/23/2018 12:00 PM & Time) Family Notified Answers: Yes Discharge Comments Notes: Patient discharged to [facility]. Transport w [employer] wc van; Chantelle to pay. MITCHELL Nogueira will call report Date Signed: 11/23/2018 09:59 AM Electronically Signed By:Charla Heanr RN
[2018-11-23] MEDS: SODIUM FLUORIDE MM SCH (11:07)
--- NOTE | 2018-11-24 13:13 | ASDISCHSUM ---
Discharge Information Plan Status:Inpatient Rehab Medically Cleared to Leave: Discharge Date:11/23/2018 12:05 PM CM D/C Disposition: ADT D/C Disposition:[facility] IP Projected Discharge Date:11/23/2018 11:00 AM Transportation at D/C:Wheelchair Van Discharge Delay Reason: Follow-Up Date:11/23/2018 11:00 AM Discharge Slot: Final Diagnosis: Placement Information Referral Type:Rehabilitation Hospital Referral ID:[id number] Provider Name:[facility] Address 1:[address] Phone Number: Address 2: Fax Number: [facility]:[place] Selection Factors: State:[place] Patient Contact Information Contact Name:PREMA Relationship: Address:[address] City:[place] Alternate Phone: State/Zip Code:[place] [address] Email: Financial Information Financial Class:Medicare Primary Plan Desc:MEDICARE INPATIENT Primary Plan Number:[id number] Secondary Plan Desc:[facility] Secondary Plan Number:[id number] Assessment Information LACE LACE Length of stay for Answers: 3 days current admission Acuity / Level of Answers: Yes Care: Did the patient have an inpatient admission? Comorbidities - select Answers: Other Notes: HTN; HLD all that apply # of Emergency department Answers: 1-2 visits in the last 6 months Score: 8 Date Signed: 11/23/2018 09:58 AM Electronically Signed By:Charla Hearn RN [facility] CM Progress Note CM Note CM Note Notes: Pt is a 82 yo M in for ICH. Pt has been accepted at inpatient rehab, MD and pt/family notified, family agreeable to [facility] inpatient rehab. CM to follow. Plan: inpatient rehab once medically stable, possibly . Date Signed: 11/22/2018 11:52 AM Electronically Signed By:BARB Menendez Case Management Discharge Plan Note Case Management Discharge Discharge Order Complete? Answers: Yes Patient to Obtain Answers: Independently Medications Transportation Arranged Answers: Other Notes: Min w/c [employer] Transport will Pick (Date 11/23/2018 12:00 PM & Time) Family Notified Answers: Yes Discharge Comments Notes: Patient discharged to [facility]. Transport w [employer] cameron singh; Chantelle to pay. MITCHELL Nogueira will call report Date Signed: 11/23/2018 09:59 AM Electronically Signed By:Charla Hearn RN Intervention Information
--- NOTE | 2018-11-27 14:26 | PQFORM ---
PHYSICIAN QUERY FORM Needs Your Response This query form is being sent to you to assure this patient record is coded properly. Please respond to the question below: JOURNALISM TEACHER QUESTION: Dear Dr. Elizabeth, Dr. Prasad requested a consult of Dr. Chaudhary for IPH and encephalopathy. In his consult he states the patient is A&Ox3 and interactive but in his progress note, he states 'mild encephalopathy due to ICH, improved today'. On the consult with Ed Galloway,he states 'alert and oriented'. On the final progress note, Dr. Castillo states 'metabolic encephalopathy'. On your discharge summary, there is no mention of encephalopathy only that there was a neurology consult. Please help in clarifying the existence of encephalopathy by clarifying which, if any, diagnoses can be added to the discharge summary. ___X___ Metabolic encephalopathy Mild encephalopathy Other Unable to determine Thank you for clarifying, MAURIZIO Gordillo HIM Coding INSTRUCTIONS FOR RESPONSE: Answer question by clicking on the "Edit Document" button. Move cursor to area below the stars. When complete, hit "Save." Click on the "Sign" button, then click "Sign" again. Type in your PIN and hit "Enter." MTDD
== END 2018-11-23 12:05 | DRG 64 ==
LOC: EDUNIT# → F2N 23:58
PROVIDERS: ADMIT Family Medicine; ATTEND Hospitalist
DX: I61.9 Nontraumatic intracerebral hemorrhage, unspecified (principal); G81.91 Hemiplegia, unspecified affecting right dominant side; G93.41 Metabolic encephalopathy; I10 Essential (primary) hypertension; E78.5 Hyperlipidemia, unspecified; D64.9 Anemia, unspecified; I08.3 Combined rheumatic disorders of mitral, aortic and tricuspid valves; R29.810 Facial weakness; M10.9 Gout, unspecified
CPT/HCPCS: 82435-PO; 82565-PO; 82947-PO; 84132-PO; 84295-PO; 84484-ER; 84520-PO; 85014-ER; 92523-GN; 92610-GN; 97116-GP; 97161-GP; 97166-GO; 97535-GO; J0360; Q9967

== ENCOUNTER 2018-11-23 11:01 | Inpatient (IN) | payer OTHER, BC ==
[2018-11-23] MEDS ORDERED: COLCHICINE PO PRN ×2 (13:28→14:30)
[2018-11-23] MEDS ORDERED: CARBOXYMETHYLCELLULOSE 0.5% 0.4 ML DROPERETTE EACHEYE PRN ×2 (13:28→14:30)
[2018-11-23] MEDS ORDERED: ACETAMINOPHEN 325 MG TAB PO PRN (13:28)
--- NOTE | 2018-11-23 14:34 | GHP ---
[f rep st] POST ADMISSION PHYSICIAN EVALUATION AND REHABILITATION TREATMENT PLAN DATE OF ADMISSION: 11/23/2018 DATE OF EVALUATION: 11/23/2018. REFERRING FACILITY: [facility]. REFERRING PHYSICIAN: Walt Chaudhary MD CONSULTING PHYSICIANS: He was seen in consultation by Neurology, Dr. Villegas, by Pulmonary and Critical Care, Dr. Chaudhary, and by Neurosurgery Dr. Sherman. REHABILITATION DIAGNOSIS: Debility status post left putamen intracranial hemorrhage. Impairment group is 1.2. Etiologic diagnosis is right body involvement (left brain). Date of onset is 11/20/2018. HISTORY OF PRESENT ILLNESS: This patient was found at home by his , with right-sided weakness. He fell without loss of consciousness while he was attempting to pull his pants up after using the bathroom. He was taken to the hospital. Head CT showed an intraparenchymal hemorrhage in the left lentiform nucleus. Hospital course was complicated by metabolic encephalopathy. He was admitted to the ICU for blood pressure control. He was started on levetiracetam for seizure prevention. He had been taking aspirin previously and this was discontinued. Studies in the hospital included a head CT which showed acute intraparenchymal hemorrhage in the left lentiform nucleus of 1.6 x 3.2 cm, as well as mild cerebral atrophy and moderate microvascular ischemic gliosis and cerebrovascular atherosclerosis. He had a CT angiogram which was negative for intracranial aneurysm, vascular malformation, mass, or sagittal sinus thrombosis. He had moderate stenosis of the left internal carotid artery with a calcified plaque. Echocardiogram was done showing normal left ventricular function with ejection fraction of 60, mild aortic, mitral, tricuspid, and pulmonic regurgitation and right ventricular systolic pressure of 46. There was no evidence of cardiac shunt. Hemoglobin A1c was 6.3. There were no fasting blood sugars above 126. Renal function and electrolytes were overall normal. Lipid panel showed a normal cholesterol at 190, elevated LDL at 114, and a normal HDL at 59. PT and INR were normal. Hematology showed mild anemia. Hemoglobin and hematocrit were 13.3 and 39.4 on the day of admission and next day were 12.4 and 37.2. PRECAUTIONS: He is a fall risk. He has aspiration precautions. He has seizure precautions. ACTIVE COMORBIDITIES: He has no active tier 1, tier 2 or tier 3 comorbidities. PAST MEDICAL HISTORY: 1. Glaucoma. 2. Hypertension. 3. Dyslipidemia. 4. Cataracts. 5. Gout. PAST SURGICAL HISTORY: He has had cataract surgery. PRE-HOSPITAL MEDICATIONS: 1. Allopurinol 100 mg p.o. daily. 2. Aspirin 81 mg p.o. daily. 3. Colchicine 0.6-1.2 mg p.o. daily p.r.n. gout flare. 4. Gemfibrozil 600 mg p.o. twice daily with meals. 5. Lisinopril 40 mg p.o. daily. 6. Calcium carbonate 500 mg p.o. daily. 7. Refresh Plus eyedrops p.r.n. 8. Dorzolamide/timolol 1 drop each eye twice daily. 9. Latanoprost 0.005%, 1 drop each eye at bedtime. 10. Multivitamin daily. 11. Sodium chloride eyedrops to each eye at bedtime. ADMISSION MEDICATIONS: 1. Acetaminophen 600 mg p.o. q.4 hours p.r.n. 2. Allopurinol 100 mg p.o. daily. 3. Calcium carbonate 500 mg p.o. daily. 4. Refresh eyedrops p.r.n. 5. Colchicine 0.6-1.2 mg p.o. daily p.r.n. gout flare. 6. Dorzolamide/timolol drops each eye twice daily. 7. Gemfibrozil 600 mg p.o. twice daily with meals. 8. Latanoprost 0.005%, 1 drop each eye at bedtime. 9. Levetiracetam 750 mg p.o. twice daily through 11/26/2018. 10. Lisinopril 40 mg p.o. daily. 11. Multivitamin p.o. daily. 12. Sodium chloride 1 drop each eye at bedtime. ALLERGIES: There are no known drug allergies. PSYCHOSOCIAL HISTORY: He is . He lives with his . There is a son also involved in his care. He is a retired physicist. He has a remote history of smoking. FAMILY HISTORY: Noncontributory. REVIEW OF SYSTEMS: He is aware of some weakness and discoordination on the right side. He is left handed. He denies difficulty swallowing, vision changes , loss of sensation or tingling in the extremities. He denies headache. He denies cough or dyspnea, fevers or chills. He denies chest pain or palpitations. He denies nausea, vomiting, constipation, or diarrhea. He denies dysuria or urinary frequency. He has no joint pain or joint swelling. Otherwise, a 10-point review of systems is negative. PHYSICAL EXAM: VITAL SIGNS: Blood pressure is 97/59, heart rate is 69, respiratory rate is 15, oxygen saturation is 94% on room air. His weight is 56.2 kg for a body mass of 23.6. GENERAL: This is a well-nourished, well- developed man, appears younger than his chronologic age, lying in bed, dressed in street clothes, cooperative, and in no acute distress. HEENT: Extraocular movements are intact. Pupils are equal, round, reactive to light. Mucous membranes are moist. He has an uncrowded airway, Mallampati class 2. NECK: Supple. HEART: There is a regular rate and rhythm with no murmurs, gallops. LUNGS: Are clear to auscultation bilaterally. ABDOMEN: Soft, nontender, nondistended with normoactive bowel sounds. No hepatosplenomegaly. EXTREMITIES : There is no cyanosis, clubbing, or edema. NEUROLOGIC: He is alert, oriented x3. He is hard of hearing and somewhat forgetful. Cranial nerves 2- 12 are grossly intact. There is no loss of sensation to light touch. Motor strength is 5/5 overall on the left side and is 4+/5 at the right hand thoracic medicine physician, biceps, triceps, hip flexor and hamstring. Is 5/5 at the right quadriceps. [id number] shows inaccuracy with the right hand and normal with the left hand. His speech is normal. He has right pronator drift. Deep tendon reflexes are 2/4 bilaterally at the biceps, patellar, and Achilles tendons. CURRENT LEVEL OF FUNCTION PER THE PREADMISSION SCREEN,: He was on a regular diet. He was noted to have mild dysphagia with advice to limit bite size and be upright with oral intake. Grooming required minimal assist. Dressing lower body required maximal assist. He was continent of bowel and bladder. Bed mobility required contact guard assist. He was able to transfer with minimal assist and voice cues using a front walker. Seated balance required contact guard to minimal assist. Standing balance required minimal assist. Endurance was fair. He was able to ambulate 200 feet with minimal assist and voice cues. He was noted to have moderate impairment in attention, judgment, and problem solving. On today's exam, there are no significant changes from the preadmission screen. IMPRESSION: This is an 82-year-old man who had an intracranial hemorrhage of the left lentiform nucleus. He was treated in the hospital where serial head CTs were done showing no progression of the hemorrhage and was deemed a nonsurgical. He was monitored regarding his blood pressure in the ICU. There was encephalopathy. He was able to work with therapies and was otherwise medically stable and appropriate for inpatient rehab. His goal is to complete a rehabilitation stay and then return home with his and supportive services. For a safe discharge he will need to progress to modified independence with ADLs and functional mobility using the least restrictive device and compensatory strategies. He will demonstrate knowledge into his deficits and use compensatory strategies for cognitive and functional impairment. There will be patient and family. He will have therapy with physical therapy, occupational therapy, and pathology for 60 minutes per day for each discipline 5-7 days of the week. His expected duration of stay is 10-14 days. It is anticipated that upon discharge, he will benefit from health services including nursing, speech and language pathology, OT and PT. He also may benefit from a brain injury support group. PLAN: 1. Debility, status post left lentiform nucleus intracranial hemorrhage. PT and OT to optimize mobility and activities of daily living toward the modified independent level. 2. Cognitive impairment and mild dysphagia to be evaluated and treated per Speech and Language Pathology. 3. Hypertension. Continue lisinopril. Suggestion in the hospital discharge summary was to consider amlodipine should his blood pressure be consistently above 140/90. He is actually hypotensive on admission to rehabilitation, but previously his blood pressures have mostly been within the target range. We will monitor blood pressures and adjust or add medications as indicated. 4. Mild valvular CHF and mild pulmonary hypertension. These appear to be compensated. He has no signs or symptoms of congestive heart failure. 5. Chronic anemia, likely at baseline. However, on review of labs, he had a decrease in hemoglobin and hematocrit during his hospital stay. I will order a repeat complete blood count for tomorrow morning. 6. Dyslipidemia. Continue gemfibrozil. 7. Prediabetes as evidenced by hemoglobin A1c at 6.3. This is below the threshold of 6.5 to define diabetes and he has not had a fasting blood sugar greater than 126. No medication is indicated. I have ordered a consult with a dietitian. 8. Gout. Continue colchicine on a p.r.n. basis. Continue allopurinol. 9. Glaucoma. Continue eye drops. 10. Questionable indication for aspirin, which he was taking prior to his hemorrhage. It has been discontinued due to the intracranial hemorrhage. Doubt that there is an indication to resume aspirin in the interim. 11. Prophylaxis. He has ambulated greater than 250 feet. He has no hemiparesis. He has a recent hemorrhage. The risks of prophylactic anticoagulation outweigh potential benefits. 12. Followup. He should follow up with Neurosurgery after discharge. /[id number]/MODL MTDD
[2018-11-23] MEDS: GEMFIBROZIL 600 MG TAB PO SCH (16:54)
[2018-11-23] MEDS: DORZOLAMIDE/TIMOLOL 10 ML OPHT.BTL EACHEYE SCH (20:08)
[2018-11-23] MEDS: SODIUM CHLORIDE 5% EACHEYE SCH (20:11)
[2018-11-23] MEDS: LATANOPROST 0.005% 2.5 ML OPHT DROPS EACHEYE SCH (20:48)
[2018-11-23] MEDS: levETIRAcetam 500 MG TAB PO SCH (22:04)
[2018-11-24] MEDS: LISINOPRIL 40 MG TAB PO SCH (08:00)
[2018-11-24] MEDS: MULTIVITAMINS 1 EACH TAB PO SCH (08:01)
[2018-11-24] MEDS: CALCIUM CARBONATE 500 MG TAB PO SCH (08:01)
[2018-11-24] MEDS: ALLOPURINOL 100 MG TAB PO SCH (08:01)
[2018-11-24] MEDS: GEMFIBROZIL 600 MG TAB PO SCH ×2 (08:01→16:55)
[2018-11-24] MEDS: levETIRAcetam 500 MG TAB PO SCH ×2 (08:01→21:41)
[2018-11-24] MEDS: SODIUM FLUORIDE MM SCH (08:03)
[2018-11-24] MEDS: DORZOLAMIDE/TIMOLOL 10 ML OPHT.BTL EACHEYE SCH ×2 (08:03→20:30)
[2018-11-24] MEDS ORDERED: Herbals/Supplements -Info Only PO SCH (09:00)
[2018-11-24 09:13] LABS: PLATELET COUNT 208 10^3/uL (150-400)
--- NOTE | 2018-11-24 11:19 | HOSPPROG ---
Hospitalist Progress Note Assessment/Plan: * Debility s/p L insula ICH with right sided weakness * PT/OT * on keppra seizure prophylaxis * cognitive impairment/mild dysphagia * speech therapy * HTN * blood pressure on lower side * cont to watch * on Lisinopril * Mild valvular CHF and pulm HTN * stable * Mild Chronic anemia * stable Hg * Dyslpidemia * gemfibrozil * prediabetes with Hga1c 6.3 * Gout * glaucoma * DVT proph - lovenox contraindicated Subjective: no new complaints. denies dizziness Objective: Vital Signs Temp Pulse Resp BP Pulse Ox 36.7 C 80 18 116/68 98 11/24/18 06:06 11/24/18 09:05 11/24/18 09:05 11/24/18 09:05 11/24/18 09:05 Laboratory Results 11/24/18 06:00 11/24/18 06:00 11/23/18 11/24/18 11/25/18 05:59 05:59 05:59 Intake Total 600 200 Balance 600 200 - Physical Exam Constitutional: no apparent distress, appears nourished, not in pain Eyes: anicteric sclera Ears, Nose, Mouth, Throat: moist mucous membranes, hearing normal Cardiovascular: regular rate and rhythym Respiratory: no respiratory distress, no rales or rhonchi, clear to auscultation Gastrointestinal: normoactive bowel sounds, soft, non-tender abdomen, no palpable masses Skin: warm, other (right forearm superficial abrasion - healing, no infection) Neurologic: AAOx3, weakness (right), facial droop Psychiatric: interacting appropriately, not anxious, not encephalopathic, thought process linear ICD10 Worksheet Patient Problems: Problems Problem Status Onset Intracranial hemorrhage Acute
[2018-11-24] MEDS: LATANOPROST 0.005% 2.5 ML OPHT DROPS EACHEYE SCH (21:06)
[2018-11-24] MEDS: SODIUM CHLORIDE 5% EACHEYE SCH (22:16)
[2018-11-25 08:14] VITALS: BP 132/84
[2018-11-25] MEDS: ALLOPURINOL 100 MG TAB PO SCH (08:16)
[2018-11-25] MEDS: GEMFIBROZIL 600 MG TAB PO SCH (08:16)
[2018-11-25] MEDS: LISINOPRIL 40 MG TAB PO SCH (08:16)
[2018-11-25] MEDS: levETIRAcetam 500 MG TAB PO SCH (08:17)
[2018-11-25] MEDS: SODIUM FLUORIDE MM SCH (08:19)
[2018-11-25] MEDS: DORZOLAMIDE/TIMOLOL 10 ML OPHT.BTL EACHEYE SCH (08:20)
[2018-11-25] MEDS: MULTIVITAMINS 1 EACH TAB PO SCH (08:22)
[2018-11-25] MEDS: CALCIUM CARBONATE 500 MG TAB PO SCH (08:22)
--- NOTE | 2018-11-25 10:59 | SOAPPROG ---
SOAP Progress Note Assessment/Plan: Assessment/Plan: * Debility s/p L insula ICH with right sided weakness * PT/OT - making good progress- receiving training to support * on keppra seizure prophylaxis - should complete on 11/28 (1 week from initial finding) * cognitive impairment/mild dysphagia * speech therapy - Currently not on a modified diet * HTN - Has remained below 140/90. Slightly higher today than has been. Have discussed with family that should f/u with PCP this coming week for ongoing evaluation. * cont to watch * on Lisinopril * Mild valvular CHF and pulm HTN * stable - Will not restart ASA while here - Will f/u with NSG/PCP for consideration * Mild Chronic anemia * stable Hg * Dyslpidemia * gemfibrozil - per home dosing * prediabetes with Hga1c 6.3 * Gout - No flares during his acute care stay. Continue medications * glaucoma- Continue home medication * DVT proph - lovenox contraindicated given recent bleed. Pt is walking several times a day with support - low risk * Follow- up - has been provided a list of recommendations regarding equipment that is needed for support/safety. She already has several items because her mother had stayed with them before and required supportive equipment - Should make an appt this week with PCP for BP check and further management as indicated - Needs an appt with 11/25/18 10:55 Subjective: Pt reporting he would like to go home. He has struggled so much with being able to sleep and the familiarity of his home. Wanted to just go home for today and sleep and then come back for the therapy tomorrow although explained how the IP rehab works (or any inpatient for that matter). We talked about the benefits of being in the inpatient rehab setting especially with the gains he has been making. We discussed the potential risks given he is still not fully independent. His was also present and was able to work through the limitations (especially the proprioception, vision loss, and some cognitive loss ) and provide good contingency plan for all the concerns. They will only be ambulating in the house for now - we are not recommending any other terrain given limited training/testing with more complex environments from both a physical/cognitive standpoint. She also has a Son that reports he can get off work and support over the next couple of weeks. is retired and can be home with him at all times. They have been given equipment recommendations and she will self purchase today. She has demonstrated ability to provide needed support for simple ADL'S, basic ambulatory needs. They will set up an appt this week with PCP to monitor BP - should check daily to provide log for PCP. Goal is <140/90 per NrSG and Neurology. Understand that should NOT be taking ASA until given clearance/direction from PCP/NrSG. Objective: Vital Signs Temp Pulse Resp BP Pulse Ox 98.0 F 76 18 132/84 H 93 11/25/18 08:00 11/25/18 08:00 11/25/18 08:00 11/25/18 08:16 11/25/18 08:00 Laboratory Results 11/24/18 06:00 11/24/18 06:00 11/24/18 11/25/18 11/26/18 05:59 05:59 05:59 Intake Total 600 1110 240 Balance 600 1110 240 Physical Exam - Physical Exam General Appearance: alert, no apparent distress Respiratory: lungs clear, normal breath sounds Cardiac/Chest: regular rate, rhythm, other ( no LE edema) Abdomen: non-tender, soft Skin: normal color Extremities: non-tender Neuro/Psych: alert, normal mood/affect, oriented x 3, other (Some deficit with proprioception of the RUE/RLE- Gross strength is relatively preseverd although does have a +Pronator drift. Following basic commands/2step commands well, Hard of hearing even with HAs, ) ICD10 Worksheet Patient Problems: Problems Problem Status Onset Intracranial hemorrhage Acute
--- NOTE | 2018-11-26 16:35 | PDDCSUM ---
Discharge Summary Discharge Summary: Date of Admission: 11/23/18 Date of Discharge: 11/25/18 Discharge Location: Home with Discharge Diagnosis: 1. Left Insula Intracranial hemorrhage 2. Right UE/LE hemiparesis 3. Right peripheral vision impairment 4. Insomnia 5. Seizure Prophylaxis 6. Glaucoma (chronic) 7. Gout (chronic) 8, Hypertension. (chronic) 9. Hyperlipidemia. (chronic) 10. Chronic anemia at baseline. CONSULTANTS(during acute care): 1. Ed Galloway PA-C nad Dr. Amador Sherman - neurosurgery. 2. Dr. Walt Chaudhary, pulmonary critical care. 3. Dr. Raul Villegas, neurology. IMAGING STUDIES: 1. Head CT November 20, 2018, showed acute intraparenchymal hemorrhage in the left lentiform nucleus measuring 1.6 x 3.2 cm, in addition, mild cerebral atrophy and moderate microvascular ischemic gliosis as well as cerebral vascular atherosclerosis were noted. 2. Echocardiogram November 21, 2018, showed normal left ventricular function with an ejection fraction of 60%, mild aortic regurgitation, mild mitral regurgitation, mild tricuspid regurgitation. Right ventricular systolic pressure 46. Mild pulmonic valve regurgitation. No evidence of intracardiac shunting. 3. Head CT angiogram November 21, 2018, was negative for intracranial aneurysm, vascular malformation, mass, or sagittal sinus thrombosis. 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 ADMISSION HPI: This patient was found at home by his after she had been out with right- sided weakness. He fell without loss of consciousness while he was attempting to pull his pants up after using the bathroom. He was taken to the hospital. Head CT showed an intraparenchymal hemorrhage in the left putamen. Hospital course was complicated by metabolic encephalopathy. He was admitted to the ICU for blood pressure control. He was started on levetiracetam for seizure prevention. He had been taking aspirin previously and this was discontinued. Studies in the hospital included a head CT which showed acute intraparenchymal hemorrhage in the left lentiform nucleus of 1.6 x 3.2 cm, as well as mild cerebral atrophy and moderate microvascular ischemic gliosis and cerebrovascular atherosclerosis. He had a CT angiogram which was negative for intracranial aneurysm, vascular malformation, mass, or sagittal sinus thrombosis. He had moderate stenosis of the left internal carotid artery with a calcified plaque. Echocardiogram was done showing normal left ventricular function with ejection fraction of 60, mild aortic, mitral, tricuspid, and pulmonic regurgitation and right ventricular systolic pressure of 46. There was no evidence of any cardiac shunt. Hemoglobin A1c was 63. There were no fasting blood sugars above 126. Renal function and electrolytes were overall normal. Lipid panel showed a normal cholesterol at 190, elevated LDL at 114, and a normal HDL at 59. PT and INR were normal. Hematology showed mild anemia. Hemoglobin and hematocrit were 13.3 and 39.4 on the day of admission and next day were 12.4 and 37.2. PRECAUTIONS: He is a fall risk. He has aspiration precautions. He has seizure precautions. HOSPITAL COURSE: 1. Left Insula ICH with associated Debility. Pt was evaluated by PT/OT/GENERAL HOUSE WORKER - He was able to work with them on the and the prior to his departure. His was provided training regarding supporting patient only for home/flat/cleared environments. Pt and were informed that he should always have his walker and should only be mobile if his was able for SBA/SPV in their home. They should not be mobilizing outside of this space. was able to get the recommended equipment prior to pt's discharge on the . They also had a son that was going to be in town and able to support his father with mobility and other ADL's. Pt was mobilizing with the RN's to the bathroom and remaining continent by time of d/c. Was requiring spv and some support for dressing. He was instructed to work with his PCP to get him set up for Outpatient PT/OT/GENERAL HOUSE WORKER as he will need all three for a short time. Should not drive, should not be left alone in the shower, will need set up and support for meals. They should continue providing a supportive cognitive environment as per GENERAL HOUSE WORKER recs 2. Insomnia - Pt reported since his injury he had barely slept 2 hrs per night. We talked about potential technique to support his room to be set up more like his home or even meditation or other like interventions. We also discussed utilizing medications to help with going to sleep. Pt was resistant to meds or other. He felt that if he could be home he'd likely recover better because he'd be able to sleep better and be more comfortable. THis was the driving factor that led to his early discharge compared to what was planned. Given the significant support from the pt's (and son that will be there this week) and that the patient had made some progress it was determined he was safe to go home. He was hopeful he'd be able to sleep at home and then return every day for his 3hrs of rehab but we discussed how the inpatient rehabilitation program works. 3. HTN - He was restarted on his home dose of lisinopril at the [facility]. His BP was monitored and showed a slight increase during his time on rehab although never passed the 140/90 threshold. He was instructed to take his BP 1-2 times daily to assure that was staying within range (keep documentation for PCP). He was instructed to f/u with his PCP this week to discuss results and make any adjustments to his medication regimen as indicated. 4. Seizure prophylaxis - Pt was started on Keppra as per the Acute Care team. He was instructed to stay on this medication for a total of 7 days. He did not demonstrate any seizure activity while in the hospital or during rehab. He was sent home with 3 additional days of Keppra. Was instructed to report to the ER if there was any signs of seizure activity 5. Chronic Medical Conditions - Pt was continued on treatment for gout as well as hyperlipidemia. No changes were made Pt was instructed not to take his ASA until his f/u with Nrsg and his PCP as per discharge instruction from the [facility] Discharge Medicatinos 1. Keppra 750 BID x3 days 2. Lisinopril 40mg Daily 3. Gemfibrozil 600mg BID 4. Colchicine 0.6-1.2 mg daily Prn gout attack 5. Allopurinol 100mg daily 6. Herbal supplement - 1 tab daily 7. carboxymethylcellulose 0.5% - 1 drop each eye prn dry eyes 8. Dorzolamide/timolol- 1 drop each eye BID 9. Latanoprost 0.005% - 1 drop each eye QHS 10. Multivitamin - 1 tab daily Follow UP 1. PCP - Dr. Mc Carroll - 1 week. To provide BP management and scripts for outpatient therapy (PT/OT/GENERAL HOUSE WORKER) according to where patient chooses he'd like to go. 2. Neurosurgery - Dr. Amador Sherman - 1-2 weeks. Discussion regarding restart of ASA and f/u after ICH was provided with all above discussed recommendations.
--- NOTE | 2018-11-27 12:20 | PDOREHIP ---
Admission [facility] - Admission - 3 Day Assessment Period Admission Date/Day 1: 11/23/18 Day 2: 11/24/18 Day 3: 11/25/18 - Active Diagnoses Comorbidities and Co-existing Conditions at Admission: 01650. None of the Above - Skin Conditions Unhealed Pressure Ulcer (1 or more/Stage 1 or >)-Admission: 0. No # Stage 1 Pressure Ulcers-Admission: 0 # Stage 2 Pressure Ulcers-Admission: 0 # Stage 3 Pressure Ulcers-Admission: 0 # Stage 4 Pressure Ulcers-Admission: 0 # Unstageable Pressure Ulcers (Non-remove Dress)-Admission: 0 # Unstageable Pressure Ulcers (Slough/Eschar)-Admission: 0 # Unstageable Pressure Ulcers (Deep Tissue Injury)-Admission: [address] [facility] - Discharge - 3 Day Assessment Period 2 Days Prior to Anticipated Discharge Date: 11/23/18 1 Day Prior to Anticipated Discharge Date: 11/24/18 Anticipated Discharge Date: 11/25/18
--- NOTE | 2018-11-27 12:21 | PDOREHIP ---
Admission [facility] - Admission - 3 Day Assessment Period Admission Date/Day 1: 11/23/18 Day 2: 11/24/18 Day 3: 11/25/18 - Active Diagnoses Comorbidities and Co-existing Conditions at Admission: 31993. None of the Above Discharge [facility] - Discharge - 3 Day Assessment Period 2 Days Prior to Anticipated Discharge Date: 11/23/18 1 Day Prior to Anticipated Discharge Date: 11/24/18 Anticipated Discharge Date: 11/25/18 - Discharge Skin Conditions Unhealed Pressure Ulcer (1 or more/Stage 1 or >)-Discharge: 0. No # Stage 1 Pressure Ulcers-Discharge: 0 # Stage 2 Pressure Ulcers-Discharge: 0 # of These Stage 2 Pressure Ulcers Present on Admission: 0 # Stage 3 Pressure Ulcers-Discharge: 0 # of These Stage 3 Pressure Ulcers Present on Admission: 0 # Stage 4 Pressure Ulcers-Discharge: 0 # of These Stage 4 Pressure Ulcers Present on Admission: 0 # Unstageable Pressure Ulcers (Non-remove Dress)-Discharge: 0 # These Unstageable Pressure Ulcers (NRD)-Present on Admit: 0 # Unstageable Pressure Ulcers (Slough/Eschar)-Discharge: 0 # These Unstageable Pressure Ulcers(Slough) Present on Admit: 0 # Unstageable Pressure Ulcers (Deep Tissue Injury)-Discharge: 0 # These Unstageable Pressure Ulcers (DTI) Present on Admit: 0
== END 2018-11-25 16:07 | disposition home or self-care (01) | DRG 57 ==
LOC: BREH 12:37
PROVIDERS: ADMIT Internal Medicine Hospice and Palliative Medicine; ATTEND Physical Medicine & Rehabilitation
PROC: F08Z1FZ Dressing Techniques Treatment using Assistive, Adaptive, Supportive or Protective Equipment (ICD-10-PCS; principal; 2018-11-23)
PROC: F08Z3FZ Feeding/Eating Treatment using Assistive, Adaptive, Supportive or Protective Equipment (ICD-10-PCS; principal; 2018-11-23)
PROC: F07Z5FZ Bed Mobility Treatment using Assistive, Adaptive, Supportive or Protective Equipment (ICD-10-PCS; principal; 2018-11-23)
DX: I69.151 Hemiplegia and hemiparesis following nontraumatic intracerebral hemorrhage affecting right dominant side (principal); I69.191 Dysphagia following nontraumatic intracerebral hemorrhage; I69.119 Unspecified symptoms and signs involving cognitive functions following nontraumatic intracerebral hemorrhage; I69.198 Other sequelae of nontraumatic intracerebral hemorrhage; H53.451 Other localized visual field defect, right eye; I10 Essential (primary) hypertension; G47.00 Insomnia, unspecified; D64.9 Anemia, unspecified; H40.9 Unspecified glaucoma; E78.5 Hyperlipidemia, unspecified; M10.9 Gout, unspecified; I77.9 Disorder of arteries and arterioles, unspecified; Z91.81 History of falling; I27.20 Pulmonary hypertension, unspecified; I50.9 Heart failure, unspecified; R73.03 Prediabetes
CPT/HCPCS: 92507-GN; 92523-GN; 92610-GN; 97112-GP; 97116-GP; 97162-GP; 97166-GO; 97530-GP; 97535-GO; G0515-GO